=== PATIENT | female | born 1970 | race Caucasian/White ===

== ENCOUNTER 2017-04-04 15:59 | Emergency (ER) | payer OTHER ==
[2017-04-04] MEDS ORDERED: IOHEXOL 350 MG/ML 25 ML BOTTLE (ORAL USE) PO PRN (16:01)
[2017-04-04] MEDS ORDERED: RX INFO: IV CONTRAST WAS GIVEN 1 EACH MISC MISCELLANE PRN (16:01)
[2017-04-04 16:08] LABS: Glucose,Whole Blood 89 mg/dL (75-99)
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
[2017-04-04 16:19] VITALS: RESP 18
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
[2017-04-04 16:20] LABS: Basophils # (A) 0.1 k/uL (0-0.2); Basophils % (A) 1 %; CH 29.8; CHCM 34.4; Eosinophils # (A) 0.4 k/uL (0-0.7); Eosinophils % (A) 7 %; HCT 37.6 % (34.0-46.0); HDW 2.83; HGB 12.9 gm/dL (11.4-16.0); Luc # (Auto) 0.19; Luc % (Auto) 3; Lymphocytes % (A) 34 %; MCH 29.9 pg (25.0-35.0); MCHC 34.4 g/dL (31.0-37.0); MCV 86.9 fL (80.0-100.0); Mean Platelet Volume 6.9; Monocytes # (A) 0.4 k/uL (0-1.0); Monocytes % (A) 6 %; Neutrophils # (A) 2.8 k/uL (1.3-7.7); Neutrophils % (A) 48 %; RBC 4.33 m/uL (3.80-5.40); WBC 5.7 k/uL (3.8-10.6); WBC (Perox) 6.06
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
[2017-04-04 16:30] LABS: ALT 95 U/L (9-52); AST 66 U/L (14-36); Alcohol <10 mg/dL; Alkaline Phosphatase 82 U/L (38-126); Amylase 63 U/L (30-110); Anion Gap 13 mmol/L; Blood Urea Nitrogen 20 mg/dL (7-17); Calcium 9.2 mg/dL (8.4-10.2); Carbon Dioxide 22 mmol/L (22-30); Chloride 108 mmol/L (98-107); Glucose 91 mg/dL (74-99); Non-African American GFR(MDRD) >60 (>60 ml/min/1.73 sqM); Sodium 143 mmol/L (137-145); Total Bilirubin 2.8 mg/dL (0.2-1.3)
[2017-04-04 16:31] LABS: INR 1.2 (<1.2); Partial Thromboplastin Time 22.3 sec (22.0-30.0); Prothrombin Time 11.8 sec (9.0-12.0)
[2017-04-04 16:40] LABS: Creatine Kinase 137 U/L (30-135)
[2017-04-04] MEDS ORDERED: MORPHINE SULFATE 4 MG/ML SYRINGE IV STA (16:49)
[2017-04-04 16:53] LABS: Troponin I <0.012 ng/mL (0.000-0.034)
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
--- NOTE | 2017-04-04 17:38 | XR ---
EXAMINATION TYPE: XR tibia fibula RT DATE OF EXAM: 04/04/2017 COMPARISON: NONE HISTORY: Pain TECHNIQUE: 4 views FINDINGS: I see no fracture nor dislocation. Tibia and fibula appear intact. There is a plantar calca katharina spur. IMPRESSION: Calcaneal spurring. No fracture.
[2017-04-04 18:17] LABS: Appearance,Urine Clear (Clear); Bilirubin,Urine Negative (Negative); Glucose,Urine (UA) Negative (Negative); Ketones,Urine Negative (Negative); Leukocyte Esterase,Urine Negative (Negative); Nitrite,Urine Negative (Negative); PH, Urine 5.5 (5.0-8.0); Protein,Urine Trace (Negative); UA Billing (MACRO vs. MICRO) CHEM; Urobilinogen,Urine <2.0 mg/dL (<2.0)
[2017-04-04 18:43] VITALS: BP 128/70; PULSE 98; TEMP 98.4
[2017-04-04 18:50] LABS: Specific Gravity,Urine >1.050 (1.001-1.035)
== END 2017-04-04 18:53 | disposition home or self-care (01) ==
LOC: EC 15:59
DX: M54.5 Low back pain (principal); M79.605 Pain in left leg; M79.604 Pain in right leg; V23.5XXA Motorcycle passenger injured in collision with car, pick-up truck or van in traffic accident, initial encounter; Y92.89 Other specified places as the place of occurrence of the external cause
CPT/HCPCS: 36415; 86900; 86901; 80053; 82150; 82550; 82553; 83605; 83690; 84484; 85025; 85610; 85730; 86850; 86870; 86880; 81003; 81025; 80306; 80320; 71010; 72170; 73590; 72125; 70450; 71260; 74177; 99285; 96374; J2270; Q9967